=== PATIENT | female | born 1975 | race Caucasian/White ===

== ENCOUNTER 2019-03-12 06:48 | Day surgery (SDC) | payer BC ==
[2019-03-08 10:45] LABS: BASOPHILS # (AUTO) 0.1 K/uL (0.00-0.22); BASOPHILS % (AUTO) 1.7 % (0.0-2.0); EOSINOPHILS # (AUTO) 0.1 K/uL (0-0.4); EOSINOPHILS % (AUTO) 1.8 % (0.0-4.0); HEMATOCRIT 41.7 % (36-48); HEMOGLOBIN 13.3 g/dL (12.0-16.0); LYMPHOCYTES # (AUTO) 1.6 K/uL (2.5-16.5); LYMPHOCYTES % (AUTO) 23.3 % (20.5-51.1); MEAN CORPUSCULAR HEMOGLOBIN 27 pg (27-31); MEAN CORPUSCULAR HGB CONC 32 g/dL (33-37); MEAN CORPUSCULAR VOLUME 83.2 fL (80-94); MONOCYTES # (AUTO) 0.7 K/uL (0.8-1.0); MONOCYTES % (AUTO) 9.6 % (1.7-9.3); NEUTROPHILS # (AUTO) 4.4 K/uL (1.8-7.7); NEUTROPHILS % (AUTO) 63.6 % (42.2-75.2); PLATELET COUNT (AUTO) 381 K/uL (140-450); RED BLOOD CELL COUNT(AUTO) 5.01 MIL/uL (4.20-5.40); RED CELL DISTRIBUTION WIDTH 24.7 % (11.6-13.7); WHITE BLOOD COUNT (AUTO) 6.9 K/uL (4.8-10.8)
[2019-03-08 10:49] LABS: ANION GAP 10.7 (8-16); CARBON DIOXIDE 28.2 mmol/L (21-32); CREATININE 0.5 mg/dL (0.6-1.3); POTASSIUM 3.9 mmol/L (3.5-5.1); TOTAL BILIRUBIN 0.3 mg/dL (0.0-1.0)
[~2019-03-12] VITALS: Ht 160 cm; Wt 68.9 kg
[2019-03-12] MEDS ORDERED: FERR-252 PO (07:41)
[2019-03-12] MEDS ORDERED: LIDOCAINE 1% 500 MG/50 ML VIAL ONE (09:27)
[2019-03-12] MEDS ORDERED: BUPIVACAINE-MPF/EPI 0.5% 30 ML VIAL INJ ONE (09:27)
[2019-03-12] MEDS ORDERED: PROPOFOL 200 MG/20 ML VIAL IV ONE (09:29)
[2019-03-12] MEDS ORDERED: SEVOFLURANE 250 ML BTL INH ONE (09:29)
[2019-03-12] MEDS ORDERED: fentaNYL 0.05 MG/ML VIAL ONE (09:33)
[2019-03-12] MEDS ORDERED: MIDAZOLAM 2 MG/2 ML VIAL ONE (09:33)
[2019-03-12] MEDS ORDERED: ONDANSETRON 4 MG/2 ML VIAL IVP PRN (10:30)
[2019-03-12] MEDS ORDERED: HYDROmorphone 1 MG/ML AMP IVP PRN ×2 (10:30→11:00)
[2019-03-12] MEDS ORDERED: MORPHINE SULFATE 2 MG/ML SYR IVP PRN (11:00)
[2019-03-12] MEDS ORDERED: MORPHINE SULFATE 4 MG/ML SYR IV PRN (11:00)
[2019-03-12] MEDS ORDERED: HYDROcodone/APAP 5/325 MG 1 TAB TAB PO PRN (11:00)
[2019-03-12] MEDS ORDERED: ONDANSETRON 4 MG/2 ML VIAL IV PRN (11:15)
== END 2019-03-12 11:50 | disposition home or self-care (01) ==
LOC: MOR 06:48 → MMU 06:49 → MOR 11:50
PROVIDERS: ATTEND Surgery
DX: N63.10 Unspecified lump in the right breast, unspecified quadrant (principal); R59.0 Localized enlarged lymph nodes; I10 Essential (primary) hypertension; D64.9 Anemia, unspecified
CPT/HCPCS: 19120; 36415; 71045; 80053; 81025; 85025; 88307; 88313; 88342; J0690; J2001; J2250; J2704; J3010; J3490; J7060; J7120